=== PATIENT | female | born 1980 | race Caucasian/White ===

== ENCOUNTER 2019-07-11 15:56 | Emergency (ER) | payer BC, OTHER ==
[~2019-07-11] VITALS: Ht 177.8 cm; Wt 121.4 kg
[~2019-07-11 15:56] MED LIST: CHOL100015 PO; FENT1PAT76 TP; FLUT16SP2 INH; LANS30TA6 PO; LOSA50TA14 PO; METH10TA3 PO; OXYC20TA2 PO
[2019-07-11 16:18] VITALS: BP 141/100
[2019-07-11] MEDS ORDERED: AMPICILLIN/SULBACTAM 1,500 MG in SODIUM CHLORIDE 0.9% 50 ML IV SCH (17:03)
--- NOTE | 2019-07-11 17:11 | NUR ---
PT TO ROOM 30 PER PEDIS. 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 PT ALSO C/O FEVER ON AND OFF ALL DAY WEDNESDAY WITH A MAX OF 102. NO FEVER UPON TRIAGE HERE. PT PLACED IN GOWN, PULSE OX AND BP CUFF ATTACHED AND CALL LIGHT GIVEN. IV PLACED WITH LAB DRAW. IN TO ASSESS.
--- NOTE | 2019-07-11 17:39 | NUR ---
IV PLACED WITH ONE ATTEMPT, TECH UNABLE TO GAIN ACCESS.
[2019-07-11 17:42] LABS: BASOPHILS # (AUTO) 0.02 x10^3/uL (0-0.1); BASOPHILS % (AUTO) 0 % (0-1); EOSINOPHILS # (AUTO) 0.02 x10^3/uL (0-0.4); EOSINOPHILS % (AUTO) 0 % (1-7); LYMPHOCYTES # (AUTO) 0.54 x10^3/uL (1-3.4); LYMPHOCYTES % (AUTO) 6 % (22-44); MD NO; MEAN CORPUSCULAR HEMOGLOBIN 32.3 pg (27.0-34.8); MEAN CORPUSCULAR HGB CONC 32.6 g/dL (32.4-35.8); MEAN CORPUSCULAR VOLUME 99.1 fL (80-100); MEAN PLATELET VOLUME 9.3 fL (7.4-10.4); MONOCYTES # (AUTO) 0.29 x10^3/uL (0.2-0.8); MONOCYTES % (AUTO) 3 % (2-9); NEUTROPHILS # (AUTO) 8.29 x10^3/uL (1.8-6.8); NEUTROPHILS % (AUTO) 90 % (42-75); PLATELET COUNT 156 x10^3/uL (130-400); RED BLOOD COUNT 4.19 x10^6/uL (3.82-5.3); RED CELL DISTRIBUTION WIDTH 14.3 % (9.6-15.2)
--- NOTE | 2019-07-11 17:42 | NUR ---
US AT BEDSIDE. WILL HANG ANTIBIOTIC AFTER EXAM COMPLETE.
[2019-07-11 17:49] LABS: ALBUMIN 3.2 g/dL (3.4-5.0); ANION GAP 8 mmol/L (5-15); CALCIUM 8.9 mg/dL (8.5-10.1); CHLORIDE 101 mmol/L (98-107)
[2019-07-11] MEDS ORDERED: SODIUM CHLORIDE FLUSH 10ML SYR IVF ONE (18:30)
--- NOTE | 2019-07-11 18:30 | NUR ---
PT RESTING IN ROOM. PT TALKING TO MD'S ABOUT NOT BEING ADMITTED. ADMITTING DOCTOR AT BEDSIDE.
[2019-07-11 18:49] LABS: ALANINE AMINOTRANSFERASE 38 U/L (12-78)
[2019-07-11 18:51] LABS: ALKALINE PHOSPHATASE 102 U/L (45-117); BILIRUBIN,TOTAL 0.6 mg/dL (0.2-1.0); TOTAL PROTEIN 7.9 g/dL (6.4-8.2)
[2019-07-11] MEDS ORDERED: POTASSIUM CHLORIDE 20 MEQ TAB.ER.PRT PO ONE (19:00)
[2019-07-11] MEDS ORDERED: POTASSIUM CHLORIDE 20 MEQ TAB.ER.PRT ONE (19:01)
--- NOTE | 2019-07-11 19:39 | NUR ---
DISHCARGE INSTRUCTIONS GIVEN TO PATIENT WITH ONE PRESCRIPTION. PT VERBALIZES UNDERSTANDING OF ALL INSTRUCTIONS AND FOLLOW UP. PT IV REMOVED WITHOUT DIFF. PT AMBULATED OUT OF ED PER PEDIS.
== END 2019-07-11 19:47 | disposition home or self-care (01) ==
LOC: ED 16:58 → EDIP 18:43 → UNDOADMIN 18:43 → ED 19:47
DX: L03.116 Cellulitis of left lower limb (principal); E66.9 Obesity, unspecified; Z68.34 Body mass index [BMI] 34.0-34.9, adult
CPT/HCPCS: 36415; 80053; 83605; 85025; 87040; 93971; 96365; 99284; J0295

== ENCOUNTER 2019-07-19 19:26 | Inpatient (IN) | payer BC ==
[~2019-07-19] VITALS: Ht 177.8 cm; Wt 128.9 kg
--- NOTE | 2019-07-19 19:46 | NUR ---
ERP WAS IN TO REVIEW POC WITH PT. PT AGREEABLE TO STAY THE NIGHT FOR IV ABX. PT REPORTS HER VENOUS STASIS HAS ALWAYS BEEN WORSE IN THE LLE, BUT CURRENTLY HER LLE IS MORE SWOLLEN, PAINFUL & RED D/T INFECTION. PT REPORTS TAKING THE PO ABX PRESCRIBED AT HOME.
[2019-07-19] MEDS ORDERED: AMPICILLIN/SULBACTAM 3 GM in SODIUM CHLORIDE 0.9% 100 ML IV ONE (20:00)
[2019-07-19] MEDS ORDERED: SODIUM CHLORIDE FLUSH 10ML SYR IVF ONE (20:00)
[2019-07-19 20:17] LABS: BASOPHILS # (AUTO) 0.04 x10^3/uL (0-0.1); BASOPHILS % (AUTO) 0 % (0-1); EOSINOPHILS % (AUTO) 1 % (1-7); LYMPHOCYTES # (AUTO) 0.97 x10^3/uL (1-3.4); LYMPHOCYTES % (AUTO) 12 % (22-44); MD NO; MEAN CORPUSCULAR HEMOGLOBIN 32.3 pg (27.0-34.8); MEAN CORPUSCULAR HGB CONC 32.7 g/dL (32.4-35.8); MEAN CORPUSCULAR VOLUME 98.6 fL (80-100); MEAN PLATELET VOLUME 8.4 fL (7.4-10.4); MONOCYTES # (AUTO) 0.37 x10^3/uL (0.2-0.8); MONOCYTES % (AUTO) 5 % (2-9); NEUTROPHILS # (AUTO) 6.69 x10^3/uL (1.8-6.8); NEUTROPHILS % (AUTO) 82 % (42-75); PLATELET COUNT 284 x10^3/uL (130-400); RED BLOOD COUNT 3.64 x10^6/uL (3.82-5.3); RED CELL DISTRIBUTION WIDTH 13.7 % (9.6-15.2)
[2019-07-19 20:28] LABS: ALANINE AMINOTRANSFERASE 20 U/L (12-78); ALBUMIN 3.1 g/dL (3.4-5.0); ANION GAP 7 mmol/L (5-15); CALCIUM 8.8 mg/dL (8.5-10.1); CHLORIDE 104 mmol/L (98-107); CREATININE 0.75 mg/dL (0.55-1.02)
[2019-07-19 20:30] LABS: ALKALINE PHOSPHATASE 105 U/L (45-117); BILIRUBIN,TOTAL 0.6 mg/dL (0.2-1.0); TOTAL PROTEIN 8.3 g/dL (6.4-8.2)
--- NOTE | 2019-07-19 20:58 | NUR ---
ADMITTING MD WAS IN TO SEE PT.
[2019-07-19] MEDS ORDERED: ONDANSETRON 2MG/ML, 2ML IVPush PRN (21:30)
[2019-07-19] MEDS ORDERED: DOCUSATE 100 MG CAPSULE PO PRN (21:30)
[2019-07-19] MEDS ORDERED: hydrALAzine 20 MG/ML, 1ML IVPush PRN (21:30)
[2019-07-19] MEDS ORDERED: ACETAMINOPHEN 325 MG TABLET PO PRN (21:30)
[2019-07-19] MEDS ORDERED: IBUPROFEN 600 MG TABLET ONE (21:48)
[2019-07-19] MEDS: IBUPROFEN 600 MG TABLET PO PRN (21:49)
[2019-07-19] MEDS ORDERED: VANCOMYCIN PER PHARMACY MC PRN (22:00)
[2019-07-19 22:06] VITALS: BP 129/83
[2019-07-19] MEDS ORDERED: PHARMACOKINETIC MONITORING MC PRN (22:30)
[2019-07-19] MEDS ORDERED: VANCOMYCIN 2,500 MG in SODIUM CHLORIDE 0.9% 500 ML IV ONE (22:30)
[2019-07-19] MEDS ORDERED: OMNIPAQUE 350 MG/ML, 100ML BOTTLE ONE (22:33)
[2019-07-19] MEDS: ENOXAPARIN 40 MG/0.4 ML SQ SCH (22:43)
[2019-07-19] MEDS: PIPERACILLIN/TAZO/PMX 3.375GM 50 ML IV SCH (22:43)
[2019-07-20 01:09] VITALS: BP 115/79
[2019-07-20] MEDS: PIPERACILLIN/TAZO/PMX 3.375GM 50 ML IV SCH ×4 (05:19→23:01)
[2019-07-20 07:14] VITALS: BP 113/78
[2019-07-20 08:38] LABS: BASOPHILS # (AUTO) 0.03 x10^3/uL (0-0.1); BASOPHILS % (AUTO) 1 % (0-1); EOSINOPHILS # (AUTO) 0.08 x10^3/uL (0-0.4); EOSINOPHILS % (AUTO) 1 % (1-7); LYMPHOCYTES # (AUTO) 0.97 x10^3/uL (1-3.4); LYMPHOCYTES % (AUTO) 18 % (22-44); MD NO; MEAN CORPUSCULAR HEMOGLOBIN 32.4 pg (27.0-34.8); MEAN CORPUSCULAR HGB CONC 32.5 g/dL (32.4-35.8); MEAN CORPUSCULAR VOLUME 99.6 fL (80-100); MEAN PLATELET VOLUME 8.1 fL (7.4-10.4); MONOCYTES # (AUTO) 0.44 x10^3/uL (0.2-0.8); MONOCYTES % (AUTO) 8 % (2-9); NEUTROPHILS # (AUTO) 4.05 x10^3/uL (1.8-6.8); NEUTROPHILS % (AUTO) 73 % (42-75); PLATELET COUNT 237 x10^3/uL (130-400); RED BLOOD COUNT 3.45 x10^6/uL (3.82-5.3)
[2019-07-20 08:49] LABS: ANION GAP 7 mmol/L (5-15); CALCIUM 8.3 mg/dL (8.5-10.1); CHLORIDE 109 mmol/L (98-107); CREATININE 0.69 mg/dL (0.55-1.02)
[2019-07-20] MEDS: LOSARTAN 50MG TABLET PO SCH (09:26)
[2019-07-20] MEDS: METHADONE INTENSOL 10 MG/ML ORAL CONC PO SCH (11:59)
[2019-07-20] MEDS: VANCOMYCIN 2,000 MG in SODIUM CHLORIDE 0.9% 500 ML IV SCH ×2 (11:59→23:38)
[2019-07-20 14:39] VITALS: BP 110/74
[2019-07-20] MEDS: IBUPROFEN 600 MG TABLET PO PRN (17:12)
[2019-07-20 19:17] VITALS: BP 101/68
[2019-07-20] MEDS: ENOXAPARIN 40 MG/0.4 ML SQ SCH (21:19)
[2019-07-21 00:39] VITALS: BP 131/87
[2019-07-21] MEDS: IBUPROFEN 600 MG TABLET PO PRN ×3 (00:44→22:37)
[2019-07-21] MEDS: KETOROLAC 30 MG/1 ML IV PRN ×3 (01:20→19:23)
[2019-07-21] MEDS: PIPERACILLIN/TAZO/PMX 3.375GM 50 ML IV SCH ×4 (04:46→22:37)
[2019-07-21 06:04] LABS: BASOPHILS # (AUTO) 0.02 x10^3/uL (0-0.1); BASOPHILS % (AUTO) 0 % (0-1); EOSINOPHILS # (AUTO) 0.11 x10^3/uL (0-0.4); EOSINOPHILS % (AUTO) 2 % (1-7); LYMPHOCYTES # (AUTO) 1.14 x10^3/uL (1-3.4); LYMPHOCYTES % (AUTO) 23 % (22-44); MD NO; MEAN CORPUSCULAR HGB CONC 32.2 g/dL (32.4-35.8); MEAN CORPUSCULAR VOLUME 99.4 fL (80-100); MEAN PLATELET VOLUME 8.3 fL (7.4-10.4); MONOCYTES # (AUTO) 0.46 x10^3/uL (0.2-0.8); MONOCYTES % (AUTO) 9 % (2-9); NEUTROPHILS # (AUTO) 3.28 x10^3/uL (1.8-6.8); NEUTROPHILS % (AUTO) 66 % (42-75); PLATELET COUNT 241 x10^3/uL (130-400); RED BLOOD COUNT 3.18 x10^6/uL (3.82-5.3); RED CELL DISTRIBUTION WIDTH 13.8 % (9.6-15.2)
[2019-07-21 06:17] LABS: ANION GAP 6 mmol/L (5-15); CALCIUM 8.2 mg/dL (8.5-10.1); CHLORIDE 108 mmol/L (98-107)
[2019-07-21 06:28] LABS: CREATININE 0.76 mg/dL (0.55-1.02)
[2019-07-21 07:40] VITALS: BP 113/78
[2019-07-21] MEDS: LOSARTAN 50MG TABLET PO SCH (09:31)
[2019-07-21] MEDS: METHADONE INTENSOL 10 MG/ML ORAL CONC PO SCH (11:37)
[2019-07-21] MEDS: VANCOMYCIN 2,000 MG in SODIUM CHLORIDE 0.9% 500 ML IV SCH ×2 (12:51→23:35)
[2019-07-21 14:06] VITALS: BP 131/86
[2019-07-21] MEDS: ENOXAPARIN 40 MG/0.4 ML SQ SCH (21:11)
[2019-07-21 21:44] VITALS: BP 124/85
[2019-07-22 02:27] VITALS: BP 126/85
[2019-07-22] MEDS: PIPERACILLIN/TAZO/PMX 3.375GM 50 ML IV SCH ×4 (04:47→23:00)
[2019-07-22] MEDS: KETOROLAC 30 MG/1 ML IV PRN ×4 (04:48→23:51)
[2019-07-22 05:03] LABS: BASOPHILS # (AUTO) 0.03 x10^3/uL (0-0.1); BASOPHILS % (AUTO) 1 % (0-1); EOSINOPHILS # (AUTO) 0.13 x10^3/uL (0-0.4); EOSINOPHILS % (AUTO) 3 % (1-7); LYMPHOCYTES # (AUTO) 0.99 x10^3/uL (1-3.4); LYMPHOCYTES % (AUTO) 19 % (22-44); MD NO; MEAN CORPUSCULAR HEMOGLOBIN 31.8 pg (27.0-34.8); MEAN CORPUSCULAR VOLUME 99.3 fL (80-100); MEAN PLATELET VOLUME 8.4 fL (7.4-10.4); MONOCYTES # (AUTO) 0.45 x10^3/uL (0.2-0.8); MONOCYTES % (AUTO) 9 % (2-9); NEUTROPHILS # (AUTO) 3.52 x10^3/uL (1.8-6.8); NEUTROPHILS % (AUTO) 69 % (42-75); PLATELET COUNT 273 x10^3/uL (130-400); RED BLOOD COUNT 3.38 x10^6/uL (3.82-5.3); RED CELL DISTRIBUTION WIDTH 13.5 % (9.6-15.2)
[2019-07-22 05:06] LABS: ANION GAP 7 mmol/L (5-15); CALCIUM 8.6 mg/dL (8.5-10.1); CHLORIDE 107 mmol/L (98-107); CREATININE 1.12 mg/dL (0.55-1.02)
[2019-07-22 08:20] VITALS: BP 121/81
[2019-07-22] MEDS ORDERED: METHADONE 40 MG TABLET.SOL ONE (08:50)
[2019-07-22] MEDS ORDERED: METHADONE 10 MG TABLET ONE (08:50)
[2019-07-22] MEDS: LOSARTAN 50MG TABLET PO SCH (09:48)
[2019-07-22] MEDS: METHADONE INTENSOL 10 MG/ML ORAL CONC PO SCH (09:48)
[2019-07-22] MEDS: LINEZOLID PMX 600MG/300ML 300 ML IVPB SCH ×2 (11:43→23:51)
[2019-07-22 13:32] VITALS: BP 127/85
[2019-07-22] MEDS: SODIUM CHLORIDE 0.9% 1,000 ML IV SCH (14:30)
[2019-07-22 19:10] VITALS: BP 120/83
[2019-07-22] MEDS: ENOXAPARIN 40 MG/0.4 ML SQ SCH (23:01)
[2019-07-23 01:21] VITALS: BP 124/92
[2019-07-23] MEDS: PIPERACILLIN/TAZO/PMX 3.375GM 50 ML IV SCH ×4 (05:40→22:53)
[2019-07-23] MEDS: KETOROLAC 30 MG/1 ML IV PRN ×2 (05:49→17:27)
[2019-07-23 05:51] LABS: BASOPHILS # (AUTO) 0.02 x10^3/uL (0-0.1); BASOPHILS % (AUTO) 0 % (0-1); EOSINOPHILS # (AUTO) 0.15 x10^3/uL (0-0.4); EOSINOPHILS % (AUTO) 3 % (1-7); LYMPHOCYTES # (AUTO) 0.97 x10^3/uL (1-3.4); LYMPHOCYTES % (AUTO) 19 % (22-44); MD NO; MEAN CORPUSCULAR HEMOGLOBIN 32.1 pg (27.0-34.8); MEAN CORPUSCULAR HGB CONC 32.5 g/dL (32.4-35.8); MEAN CORPUSCULAR VOLUME 98.7 fL (80-100); MEAN PLATELET VOLUME 8.5 fL (7.4-10.4); MONOCYTES # (AUTO) 0.43 x10^3/uL (0.2-0.8); MONOCYTES % (AUTO) 9 % (2-9); NEUTROPHILS # (AUTO) 3.48 x10^3/uL (1.8-6.8); NEUTROPHILS % (AUTO) 69 % (42-75); PLATELET COUNT 231 x10^3/uL (130-400); RED BLOOD COUNT 3.15 x10^6/uL (3.82-5.3); RED CELL DISTRIBUTION WIDTH 13.2 % (9.6-15.2)
[2019-07-23 06:03] LABS: ANION GAP 8 mmol/L (5-15); CALCIUM 8.3 mg/dL (8.5-10.1); CHLORIDE 107 mmol/L (98-107); CREATININE 1.36 mg/dL (0.55-1.02)
[2019-07-23 06:41] VITALS: BP 129/84
[2019-07-23] MEDS ORDERED: METHADONE 40 MG TABLET.SOL PO SCH (09:27)
[2019-07-23] MEDS: LOSARTAN 50MG TABLET PO SCH (09:47)
[2019-07-23] MEDS: SODIUM CHLORIDE 0.9% 1,000 ML IV SCH (11:08)
[2019-07-23] MEDS: LINEZOLID PMX 600MG/300ML 300 ML IVPB SCH (12:05)
[2019-07-23 14:00] LABS: C-REACTIVE PROTEIN, QUANT 3.2 mg/dL (0.02-0.49); VANCOMYCIN,RANDOM 13.7 mcg/mL
[2019-07-23 14:20] VITALS: BP 120/80
[2019-07-23 19:17] VITALS: BP 122/85
[2019-07-23] MEDS: ENOXAPARIN 40 MG/0.4 ML SQ SCH (21:30)
[2019-07-24] MEDS: KETOROLAC 30 MG/1 ML IV PRN (00:05)
[2019-07-24] MEDS: LINEZOLID PMX 600MG/300ML 300 ML IVPB SCH ×2 (00:05→11:50)
[2019-07-24 01:47] VITALS: BP 131/90
[2019-07-24] MEDS: PIPERACILLIN/TAZO/PMX 3.375GM 50 ML IV SCH ×2 (05:30→11:18)
[2019-07-24] MEDS: SODIUM CHLORIDE 0.9% 1,000 ML IV SCH (05:31)
[2019-07-24 07:17] LABS: BASOPHILS # (AUTO) 0.02 x10^3/uL (0-0.1); BASOPHILS % (AUTO) 0 % (0-1); EOSINOPHILS # (AUTO) 0.11 x10^3/uL (0-0.4); EOSINOPHILS % (AUTO) 2 % (1-7); HCT (SEDRATE) 32.6 % (34.6-47.8); LYMPHOCYTES # (AUTO) 0.74 x10^3/uL (1-3.4); LYMPHOCYTES % (AUTO) 15 % (22-44); MD NO; MEAN CORPUSCULAR HEMOGLOBIN 32.2 pg (27.0-34.8); MEAN CORPUSCULAR HGB CONC 32.6 g/dL (32.4-35.8); MEAN CORPUSCULAR VOLUME 98.9 fL (80-100); MEAN PLATELET VOLUME 8.1 fL (7.4-10.4); MONOCYTES # (AUTO) 0.33 x10^3/uL (0.2-0.8); MONOCYTES % (AUTO) 7 % (2-9); NEUTROPHILS # (AUTO) 3.69 x10^3/uL (1.8-6.8); NEUTROPHILS % (AUTO) 76 % (42-75); PLATELET COUNT 235 x10^3/uL (130-400); RED BLOOD COUNT 3.27 x10^6/uL (3.82-5.3); RED CELL DISTRIBUTION WIDTH 13.1 % (9.6-15.2)
[2019-07-24 07:26] LABS: ANION GAP 7 mmol/L (5-15); CALCIUM 8.5 mg/dL (8.5-10.1); CHLORIDE 107 mmol/L (98-107); CREATININE 1.38 mg/dL (0.55-1.02)
[2019-07-24 07:42] VITALS: BP 141/84
[2019-07-24] MEDS ORDERED: METHADONE INTENSOL 10 MG/ML ORAL CONC PO SCH (09:15)
[2019-07-24] MEDS: LOSARTAN 50MG TABLET PO SCH (09:50)
[2019-07-24] MEDS ORDERED: AMOX1TAB64 PO (11:42)
[2019-07-24] MEDS ORDERED: DOXY-162 PO (11:42)
== END 2019-07-24 14:18 | disposition home or self-care (01) | DRG 603 ==
LOC: ED 20:12 → EDIP 20:39 → 3N 21:56
PROVIDERS: ADMIT Hospitalist; ATTEND Hospitalist
DX: L03.116 Cellulitis of left lower limb (principal); Z68.41 Body mass index [BMI] 40.0-44.9, adult; N17.9 Acute kidney failure, unspecified; G89.4 Chronic pain syndrome; I10 Essential (primary) hypertension; E66.01 Morbid (severe) obesity due to excess calories; I87.2 Venous insufficiency (chronic) (peripheral); Z83.3 Family history of diabetes mellitus; Z98.84 Bariatric surgery status; Z90.49 Acquired absence of other specified parts of digestive tract
CPT/HCPCS: 36415; 80048; 80053; 80202; 83036; 83605; 85025; 85048; 85651; 86140; 87040; 87205; 96365; 99285; G0378; J0295; J1650; J1885; J2020; J2543; J3370; Q9967; J7030; J7040